=== PATIENT | male | born 1960 | race Caucasian/White ===

== ENCOUNTER 2017-06-20 17:16 | Emergency (ER) | payer OTHER ==
[~2017-06-20] VITALS: Ht 185.4 cm; Wt 81.6 kg
[2017-06-20 18:14] VITALS: BP 130/72
== END 2017-06-20 18:15 | disposition home or self-care (01) ==
LOC: ER 17:18
DX: S61.211A Laceration without foreign body of left index finger without damage to nail, initial encounter (principal); W26.0XXA Contact with knife, initial encounter; Y93.89 Activity, other specified; Y92.090 Kitchen in other non-institutional residence as the place of occurrence of the external cause; Y99.8 Other external cause status
CPT/HCPCS: 12001; 99283; A4606; A6402; Z7610